=== PATIENT | female | born 1980 | race Caucasian/White ===

== ENCOUNTER 2016-12-31 08:00 | Inpatient (IN) | payer OTHER ==
[2016-12-31 09:08] VITALS: BMI 31.7
[2016-12-31 09:37] LABS: BASOPHIL 0.3 % (0-2.0); EOSINOPHIL 0.6 % (0-4.5); MCH 30.5 pg (25.7-33.7); MEAN CELL VOLUME 89.6 fl (80-96); MEAN PLT VOLUME 7.6 fl (7.5-11.1); NEUTROPHILS 73.1 % (42.8-82.8); PLATELET COUNT 233 K/MM3 (134-434); WHITE BLOOD COUNT 8.9 K/mm3 (4.0-10.0)
[2016-12-31 09:52] LABS: ANION GAP 8 (8-16); CALCIUM 8.8 mg/dL (8.5-10.1); CO2 24 mmol/L (21-32); GLUCOSE,RANDOM 68 mg/dL (74-106)
[2016-12-31 09:55] LABS: CREATININE 0.8 mg/dL (0.55-1.02); URIC ACID 4.7 mg/dL (2.6-7.2)
[2016-12-31 10:38] LABS: HIV 1 & 2 AB NEGATIVE; HIV 1 AGp24 NEGATIVE
--- NOTE | 2016-12-31 10:40 | HP ---
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: Alzheimer's, CVA, Dementia, Migraine, Multiple Sclerosis, Peripheral Neuropathy, Parkinson's, Seizure, Syncope, TIA, Vertigo, Other Cardiovascular: No: AFIB, Aneurysm, Aortic Insufficiency, Aortic Stenosis, CAD, CHF, Deep Vein Thrombosis, HTN, Hyperlipdemia, [place], Mitral Insufficiency, Mitral Stenosis, Murmur, Pulmonary Hypertension, Other Pulmonary: No: Asthma, Bronchitis, Cancer, COPD, O2 Dependent, Pneumonia, Previously Intubated, Pulmonary Embolus, Pulmonary Fibrosis, Sleep Apnea, Other Gastrointestinal: No: Ascites, Cancer, Constipation, Crohn's Disease, Diverticulitis, Diverticulosis, Esophageal Varices, Gastritis, GERD, GI Bleed, Hemorrhoids, Hiatal Hernia, Inflamatory Bowel Disease, Irritable Bowel Disease, Pancreatitis, Peptic Ulcer Disease, Ulcerative Colitis, Other Hepatobiliary: No: Cirrhosis, Cholelithiasis, Cholecystitis, Choledocholithiasis , Hepatitis A, Hepatitis B, Hepatitis C, Other Renal/: No: Renal Failure, Renal Inusuff, BPH, Cancer, Hematuria, Hemodialysis , Neurogenic Bladder, Renal Calculi, UTI, Other ...LMP: 08/12/12 ...: 4 ...Para: 2 Heme/Onc: No: Anemia, B12 Deficiency, Bleeding Disorder, Cancer, Current Chemotherapy, Current Radiation Therapy, Hemochromatosis, Hypercoaguable State, Myeloproliferative Synd, Sickle Cell Disease, Sickle Cell Trait, Thrombocytopenia, Other Infectious Disease: No: AIDS, C-Diff, Herpes Zoster, HIV, MRSA, STD's, Tuberculosis, VREF, Other Psych: No: Addictions, Anxiety, Bipolar, Depression, Panic, Psychosis, Schizophrenia, Other Musculoskeletal: No: Bursitis, Chronic low back pain, Hemiparesis, Hemiplegia, Osteoarthritis, Paraplegia, Other Rheumatology: No: Fibromyalgia, Gout, Lupus, Rheumatoid Arthritis, Sarcoidosis, Vasculitis, Other ENT: No: Allergic Rhinitis, Sinusitis, Other - Smoking History Smoking history: Never smoked Have you smoked in the past 12 months: No - Alcohol/Substance Use Hx Alcohol Use: No Home Medications - Allergies Allergies/Adverse Reactions: Allergies Allergy/AdvReac Type Severity Reaction Status Date / Time No Known Allergies Allergy Verified 08/30/12 13:59 - Home Medications Home Medications: Ambulatory Orders No Home Medications 0 dose .ROUTE UTDICT 08/30/12 Psyllium [Metamucil (Sugar-Free)] 5.85 gm PO BID #0 packet 08/31/12 Vit/Iron Fumarate/FA [ Tablet] 1 tab PO DAILY 12/31/16 Review of Systems - Review of Systems Constitutional: reports: No Symptoms Eyes: reports: No Symptoms HENT: reports: No Symptoms Neck: reports: No Symptoms Cardiovascular: reports: No Symptoms Respiratory: reports: No Symptoms Gastrointestinal: reports: No Symptoms Genitourinary: reports: No Symptoms Musculoskeletal: reports: No Symptoms Integumentary: reports: No Symptoms Neurological: reports: No Symptoms Endocrine: reports: No Symptoms Hematology/Lymphatic: reports: No Symptoms Psychiatric: reports: No Symptoms Physical Examination Vital Signs: Vital Signs Temperature 98.1 F 12/31/16 08:58 Pulse Rate 85 12/31/16 08:58 Respiratory Rate 18 12/31/16 08:58 Blood Pressure 145/85 12/31/16 08:58 O2 Sat by Pulse Oximetry (%) Constitutional: Yes: Well Nourished Eyes: Yes: WNL HENT: Yes: WNL Neck: Yes: WNL Cardiovascular: Yes: WNL Respiratory: Yes: WNL Gastrointestinal: Yes: WNL ...Rectal Exam: Yes: WNL Renal/: Yes: WNL Breast(s): Yes: WNL Musculoskeletal: Yes: WNL Extremities: Yes: WNL Integumentary: Yes: WNL Neurological: Yes: WNL ...Motor Strength: WNL Psychiatric: Yes: WNL Labs: CBC, BMP 12/31/16 09:15 12/31/16 09:15 Assessment/Plan as above admit labs pitocin
[2016-12-31] MEDS ORDERED: OXYTOCIN 15 UNITS/ LR 250 ML 250 ML IVPB SCH (10:45)
[2016-12-31] MEDS ORDERED: ELECTROLYTE-148 SOLN 1,000 ML IV SCH (10:45)
[2016-12-31 10:48] LABS: INR 0.86 (0.82-1.09); PROTHROMBIN TIME (PATIENT) 9.4 SEC (9.98-11.88)
--- NOTE | 2016-12-31 11:49 | PN ---
Ante-Partal Exam - Subjective Vital Signs: Vital Signs Temperature 98.2 F 12/31/16 10:00 Pulse Rate 68 12/31/16 11:00 Respiratory Rate 20 12/31/16 11:00 Blood Pressure 128/82 12/31/16 11:00 O2 Sat by Pulse Oximetry (%) Bleeding: No Headache: No Visual changes: No Right upper quadrant pain: No - Contractions Contractions: Yes Regularity: Regular Intensity: Mild Monitor Mode: External - Exam during Labor Heart Rate: 150 Variability: Minimal Category: I Monitor Accelerations: Present Monitor Decelerations: None Exam: Vaginal Dilatation (cm): 5 Effacement (%): 100 Amniotic Membrane Status: Ruptured Nitrazine Test: Positive Amniotic Fluid: Clear Presentation: Vertex Station: 0 - Assessment/Plan Assessment/Plan: as above continue pitocin pain control prn
[2016-12-31] MEDS ORDERED: AMPICILLIN - 1 GM in SODIUM CHLORIDE 100 ML IVPB SCH (14:30)
[2016-12-31] MEDS ORDERED: METHYLERGONOVINE MALEATE 0.2 MG/1 ML AMP IM PRN (15:21)
[2016-12-31] MEDS ORDERED: ACETAMINOPHEN 325 MG TABLET (FP) PO PRN (15:21)
[2016-12-31] MEDS ORDERED: BENZOCAINE 28 GM HEMORRHOIDAL OINTMENT TP PRN (15:21)
[2016-12-31] MEDS ORDERED: BISACODYL 10 MG SUPP.RECT RC PRN (15:21)
[2016-12-31] MEDS ORDERED: IBUPROFEN 600 MG TABLET (FP) PO PRN (15:21)
[2016-12-31] MEDS ORDERED: WITCH HAZEL 50% (TUCKS) 40 PAD/JAR PAD TP PRN (15:21)
[2016-12-31] MEDS ORDERED: BENZOCAINE 20% 57 GM BOTTLE TP PRN (15:21)
--- NOTE | 2016-12-31 15:24 | PN ---
Delivery - Delivery Vaginal Delivery: No Problems Type of Anesthesia: None Episiotomy/Laceration: None EBL (cc): 300 Delivery, Single - Feeding Plan Initial Plan: Elected not to breastfeed exclusively throughout hospitalization
[2016-12-31] MEDS ORDERED: OXYTOCIN 20 UNITS in 0.9% NS 1,000 ML IV SCH (15:30)
--- NOTE | 2017-01-01 01:05 | PN ---
Post Progress Note Post Day: 1 Type of Delivery: Vital Signs: Vital Signs Temperature 98.9 F 12/31/16 17:40 Pulse Rate 69 12/31/16 17:40 Respiratory Rate 20 12/31/16 17:40 Blood Pressure 141/85 12/31/16 17:40 O2 Sat by Pulse Oximetry (%) Breast Exam: Yes: Soft Uterus: Yes: Fundus Firm Abdomen/GI: Yes: Abdomen soft Lochia: Yes: Rubra Lochia, amount: Small Extremities: Yes: Calves non-tender Perineum: Yes: Intact - Labs Labs: CBC WBC 8.9 K/mm3 (4.0-10.0) 12/31/16 09:15 RBC 4.39 M/mm3 (3.60-5.2) 12/31/16 09:15 Hgb 13.4 GM/dL (10.7-15.3) 12/31/16 09:15 Hct 39.3 % (32.4-45.2) 12/31/16 09:15 MCV 89.6 fl (80-96) 12/31/16 09:15 MCH 30.5 pg (25.7-33.7) 12/31/16 09:15 MCHC 34.0 g/dl (32.0-36.0) 12/31/16 09:15 RDW 14.0 % (11.6-15.6) 12/31/16 09:15 Plt Count 233 K/MM3 (134-434) 12/31/16 09:15 MPV 7.6 fl (7.5-11.1) 12/31/16 09:15 Neutrophils % 73.1 % (42.8-82.8) 12/31/16 09:15 Lymphocytes % 19.1 % (8-40) 12/31/16 09:15 Monocytes % 6.9 % (3.8-10.2) 12/31/16 09:15 Eosinophils % 0.6 % (0-4.5) 12/31/16 09:15 Basophils % 0.3 % (0-2.0) 12/31/16 09:15 Retic Count 2.65 % (0.5-1.5) H 12/31/16 09:15 Assessment/Plan as above reg diet oob pain control
[2017-01-01 08:54] LABS: BASOPHIL 0.5 % (0-2.0); EOSINOPHIL 0.6 % (0-4.5); MCH 30.7 pg (25.7-33.7); MCHC 34.1 g/dl (32.0-36.0); MEAN CELL VOLUME 89.9 fl (80-96); MEAN PLT VOLUME 7.8 fl (7.5-11.1); NEUTROPHILS 78.1 % (42.8-82.8); PLATELET COUNT 229 K/MM3 (134-434); RDW 14.1 % (11.6-15.6); WHITE BLOOD COUNT 14.3 K/mm3 (4.0-10.0)
[2017-01-01] MEDS ORDERED: SENNOSIDES/DOCUSATE COMBO (SENNA PLUS) TABLET (UD) PO PRN (22:00)
--- NOTE | 2017-01-02 06:58 | PN ---
Post Progress Note Post Day: 2 Type of Delivery: Vital Signs: Vital Signs Temperature 98.0 F 01/02/17 05:52 Pulse Rate 64 01/02/17 05:52 Respiratory Rate 20 01/02/17 05:52 Blood Pressure 131/78 01/02/17 05:52 O2 Sat by Pulse Oximetry (%) Breast Exam: Yes: Soft Uterus: Yes: Fundus Firm Abdomen/GI: Yes: Abdomen soft Lochia: Yes: Rubra Lochia, amount: Small Perineum: Yes: Intact Activity: Ambulating - Labs Labs: CBC WBC 14.3 K/mm3 (4.0-10.0) H D 01/01/17 08:00 RBC 3.75 M/mm3 (3.60-5.2) 01/01/17 08:00 Hgb 11.5 GM/dL (10.7-15.3) D 01/01/17 08:00 Hct 33.7 % (32.4-45.2) 01/01/17 08:00 MCV 89.9 fl (80-96) 01/01/17 08:00 MCH 30.7 pg (25.7-33.7) 01/01/17 08:00 MCHC 34.1 g/dl (32.0-36.0) 01/01/17 08:00 RDW 14.1 % (11.6-15.6) 01/01/17 08:00 Plt Count 229 K/MM3 (134-434) 01/01/17 08:00 MPV 7.8 fl (7.5-11.1) 01/01/17 08:00 Neutrophils % 78.1 % (42.8-82.8) 01/01/17 08:00 Lymphocytes % 15.4 % (8-40) 01/01/17 08:00 Monocytes % 5.4 % (3.8-10.2) 01/01/17 08:00 Eosinophils % 0.6 % (0-4.5) 01/01/17 08:00 Basophils % 0.5 % (0-2.0) 01/01/17 08:00 Retic Count 2.65 % (0.5-1.5) H 12/31/16 09:15 Haptoglobin 132 mg/dL (34-200) 12/31/16 09:15 Assessment/Plan as above doing well continue care dc home today
[2017-01-02 08:00] VITALS: BP 131/90; PULSE 63; TEMP 98.2
== END 2017-01-02 12:05 | disposition home or self-care (01) | DRG 560 ==
LOC: JLDR 08:00 → J3W 16:17
PROVIDERS: ADMIT Obstetrics & Gynecology; ATTEND Obstetrics & Gynecology
PROC: 10E0XZZ Delivery of Products of Conception, External Approach (ICD-10-PCS; principal; 2016-12-31)
DX: O80 Encounter for full-term uncomplicated delivery (principal); Z3A.39 39 weeks gestation of pregnancy; Z37.0 Single live birth
CPT/HCPCS: 36415; 59409; 80048; 82977; 83010; 84450; 84460; 84550; 85025; 85044; 85610; 85730; 86593; 86850; 86900; 86901; 87389

== ENCOUNTER 2017-02-23 05:07 | Day surgery (SDC) | payer OTHER ==
[2017-02-20 15:55] VITALS: BMI 27.3
[2017-02-23] MEDS ORDERED: PROPOFOL 20 ML ONE (14:44)
[2017-02-23] MEDS ORDERED: SUCCINYLCHOLINE CHLORIDE 200 MG/10 ML VIAL ONE (14:44)
[2017-02-23] MEDS ORDERED: MIDAZOLAM HCL 2 MG/2 ML SINGLE DOSE VIAL ONE (15:23)
--- NOTE | 2017-02-23 15:43 | HP ---
Past Medical History - Primary Care Physician PCP:: Jeremy Velasco - Admission Chief Complaint: sterlization History of Present Illness: 37yo f , requesting laparoscopic BTL, risks and ulcerative has discussed with patient History Source: Patient Limitations to Obtaining History: No Limitations - Past Medical History ...: 3 ...Para: 3 - Past Surgical History Hx Myomectomy: No Hx Transabdominal Cerclage: No - Smoking History Smoking history: Never smoked Have you smoked in the past 12 months: No - Alcohol/Substance Use Hx Alcohol Use: No - Social History History of Recent Travel: No Home Medications - Allergies Allergies/Adverse Reactions: Allergies Allergy/AdvReac Type Severity Reaction Status Date / Time No Known Allergies Allergy Verified 02/23/17 15:05 - Home Medications Home Medications: Ambulatory Orders NK [No Known Home Medication] 02/20/17 Review of Systems - Review of Systems Constitutional: reports: No Symptoms Eyes: reports: No Symptoms HENT: reports: No Symptoms Neck: reports: No Symptoms Respiratory: reports: No Symptoms Gastrointestinal: reports: No Symptoms Genitourinary: reports: No Symptoms Breasts: reports: No Symptoms Reported Musculoskeletal: reports: No Symptoms Integumentary: reports: No Symptoms Endocrine: reports: No Symptoms Hematology/Lymphatic: reports: No Symptoms Psychiatric: reports: No Symptoms Physical Exam-[employer] Vital Signs: Vital Signs Temperature 98.4 F 02/23/17 15:04 Pulse Rate 77 02/23/17 15:04 Respiratory Rate 20 02/23/17 15:04 Blood Pressure 110/78 02/23/17 15:04 O2 Sat by Pulse Oximetry (%) 99 02/23/17 14:59 Constitutional: Yes: Well Nourished, No Distress, Calm Eyes: Yes: WNL, Conjunctiva Clear, EOM Intact HENT: Yes: WNL, Atraumatic, Normocephalic Neck: Yes: WNL, Supple, Trachea Midline Cardiovascular: Yes: WNL, Regular Rate and Rhythm Respiratory: Yes: WNL, Regular, CTA Bilaterally Gastrointestinal: Yes: WNL ...Rectal Exam: Yes: WNL Renal/: Yes: WNL Internal Exam Deferred: No Vaginal Exam: Yes: Normal Cervix: Yes: Normal Uterus: Yes: Normal Adnexa: Not Palpable: Left, Right Breast(s): Yes: WNL Musculoskeletal: Yes: WNL Extremities: Yes: WNL Edema: No Integumentary: Yes: WNL Neurological: Yes: WNL, Alert, Oriented ...Motor Strength: WNL Psychiatric: Yes: WNL, Alert, Oriented Problem List - Problem (1) Sterilization Code(s): Z30.2 - ENCOUNTER FOR STERILIZATION Assessment/Plan laparoscopic bilateral tubal fulguration
[2017-02-23] MEDS ORDERED: IBUPROFEN 800 MG/8 ML IJ IVPB PRN (16:29)
[2017-02-23] MEDS ORDERED: IBUPROFEN 600 MG TABLET (FP) PO PRN (16:29)
[2017-02-23] MEDS ORDERED: oxyCODONE HCL 5 MG TABLET PO PRN ×2 (16:29→16:35)
[2017-02-23] MEDS ORDERED: ONDANSETRON 4 MG/2 ML VIAL IVPB PRN (16:29)
[2017-02-23] MEDS ORDERED: ELECTROLYTE-148 SOLN 1,000 ML IV SCH (16:30)
[2017-02-23] MEDS ORDERED: ONDANSETRON 4 MG/2 ML VIAL IVPUSH PRN (16:35)
[2017-02-23] MEDS ORDERED: PROMETHAZINE HCL 25 MG/1 ML VIAL IVPUSH PRN (16:35)
--- NOTE | 2017-02-23 17:05 | OP ---
DATE OF OPERATION: 02/23/2017 PREOPERATIVE DIAGNOSIS: Voluntary sterilization. POSTOPERATIVE DIAGNOSIS: Voluntary sterilization. PROCEDURE: Laparoscopic bilateral tubal cauterization. SURGEON: Jeremy Velasco MD ANESTHESIA: General. ANESTHESIOLOGIST: Steve Bell MD ESTIMATED BLOOD LOSS: 15-20 mL DESCRIPTION OF OPERATIVE PROCEDURE: patient was taken to the operating room. Under adequate general anesthesia, examination under anesthesia revealed the external genitalia to be normal. Vagina was normal. Cervix clean; no lesion. Uterus normal size. Adnexa: No masses palpable. Then, with a weighted speculum in the vagina, anterior lip of the cervix was grasped with a single-tooth tenaculum, and the uterine cavity was sounded to 9 cm. Then, Hulka was introduced into the uterine cavity. A Sanchez was inserted, and the patient was prepped and draped for a pelviscopy. A small infraumbilical skin incision was made. The Veress needle was introduced. Pneumoperitoneum established. A 5-mm trocar introduced through the umbilical area, and then, scope was introduced. Under direct vision, a 5-mm trocar was introduced through the suprapubic area, and bipolar cautery was introduced. Right tube was grasped with the bipolar cautery, cauterized in 3 portions 2 cm apart. The same procedure for the opposite tube. Uterus was normal size with a small, 3-cm anterior myoma. Both tubes and ovaries were normal. No cul-de-sac adhesion. No bleeding was seen. Upper abdomen was normal. Abdomen was emptied of all the gases, instruments withdrawn, and suprapubic and infraumbilical skin incisions were closed with interrupted sutures of 4-0 Biosyn. Patient tolerated the procedure well, left the OR in good condition. Tomas [id number]
[2017-02-23 18:01] VITALS: TEMP 97.5
[2017-02-23 19:35] VITALS: BP 130/80; PULSE 66
== END 2017-02-23 19:45 | disposition home or self-care (01) ==
LOC: JASU-SURG 05:07
PROVIDERS: ATTEND Obstetrics & Gynecology
PROC: 0U574ZZ Destruction of Bilateral Fallopian Tubes, Percutaneous Endoscopic Approach (ICD-10-PCS; principal; 2017-02-23 16:00)
DX: Z30.2 Encounter for sterilization (principal)
CPT/HCPCS: 84703; 94760

== ENCOUNTER 2017-07-10 08:56 | Emergency (ER) | payer OTHER ==
[2017-07-10 09:15] VITALS: BP 135/88; PULSE 78; TEMP 98.6; BMI 26.6
--- NOTE | 2017-07-10 10:54 | PDOC ---
History of Present Illness <Paul Keith - Last Filed: 07/10/17 10:59> - General History Source: Patient Exam Limitations: No Limitations - History of Present Illness Initial Comments: 07/10/17 13:51 The patient is an otherwise healthy 37-year-old female with no significant past medical history, and presents to the emergency department for evaluation of a left breast lump. Patient states she noticed the lump yesterday night after feeling pain in her left breast. She reports the mass is located at the lateral aspect of the breast. She states she gave 6 months ago but denies . The patient denies chest pain, shortness of breath, headache and dizziness. The patient denies fever, chills, nausea, vomit,. Allergies: NKDA Past Surgical History: None reported Social History: No toxic habits reported PCP: Dr. Chikis Ordonez [facility] Hx: sister had colon cancer at age 25 <Christa Ramirez - Last Filed: 07/10/17 13:52> - General Chief Complaint: Pain Stated Complaint: LUMP ON BREAST Time Seen by Provider: 07/10/17 10:32 Past History - Past Medical History Anemia: No Asthma: No Cancer: No Cardiac Disorders: No CVA: No COPD: No CHF: No Dementia: No Diabetes: No GI Disorders: No Disorders: No HTN: No Hypercholesterolemia: No Liver Disease: No Seizures: No Thyroid Disease: No - Surgical History Abdominal Surgery: No Appendectomy: No Cardiac Surgery: No Cholecystectomy: No Lung Surgery: No Neurologic Surgery: No Orthopedic Surgery: No - Suicide/Smoking/Psychosocial Hx Smoking History: Never smoked Have you smoked in the past 12 months: No Information on smoking cessation initiated: No Hx Alcohol Use: No Drug/Substance Use Hx: No Substance Use Type: None Hx Substance Use Treatment: No <Paul Keith - Last Filed: 07/10/17 10:59> <Christa Ramirez - Last Filed: 07/10/17 13:52> - Past Medical History Allergies/Adverse Reactions: Allergies Allergy/AdvReac Type Severity Reaction Status Date / Time No Known Allergies Allergy Verified 07/10/17 09:09 Home Medications: Ambulatory Orders Ibuprofen [Motrin -] 600 mg PO QID #28 tablet 02/23/17 Review of Systems - Review of Systems Able to Perform ROS?: Yes Comments:: 07/10/17 13:51 CONSTITUTIONAL: No reported: Fever, Chills, Diaphoresis, Generalized Weakness, Malaise, Loss of Appetite RESPIRATORY: No reported: Cough, Shortness of Breath, GASTROINTESTINAL: No reported: Nausea, Vomiting, BREAST: (+) Left breast lump <Christa Ramirez - Last Filed: 07/10/17 13:52> *Physical Exam - Vital Signs Last Vital Signs Temp Pulse Resp BP Pulse Ox 98.6 F 78 18 135/88 100 07/10/17 09:09 07/10/17 09:09 07/10/17 09:09 07/10/17 09:09 07/10/17 09:09 <Paul Keith - Last Filed: 07/10/17 10:59> - Vital Signs Last Vital Signs Temp Pulse Resp BP Pulse Ox 98.6 F 78 18 135/88 100 07/10/17 09:09 07/10/17 09:09 07/10/17 09:09 07/10/17 09:09 07/10/17 09:09 - Physical Exam Comments: 07/10/17 13:52 GENERAL: The patient is awake, alert, and fully oriented, Nontoxic - in no acute distress BREAST EXAM: (+) 2x3 cm mildly tender mass in LLQ of the left breast. No erythema, no induration, no fluctuance, no dimpling. <Christa Ramirez - Last Filed: 07/10/17 13:52> Medical Decision Making - Medical Decision Making 07/10/17 10:59 37y F presents with L sided breast mass. Pt had alittle pain there last night so she felt the area and noted a mass. Pt denies any fever/chills, not currently breast feeding. on exam pt has a mildly tender mass on the LLQ of the L breast ddx:cyst, consider abcess but not clinically consistent, breast ca will hav ept fu wit PMD for further imaging Return precautions were discussed A portion of this note was documented by scribe services under my direction. I have reviewed the details of the note, within reason, and agree with the documentation with the following case summary and management plan written by me <Paul Keith - Last Filed: 07/10/17 10:59> *DC/Admit/Observation/Transfer - Discharge Dispostion Admit: No <Paul Keith - Last Filed: 07/10/17 10:59> - Attestations Scribe Attestion: 07/10/17 13:52 Documentation prepared by Christa Ramirez, acting as medical concierge for Paul Keith MD, /DO. <Christa Ramirez - Last Filed: 07/10/17 13:52> Diagnosis at time of Disposition: Breast mass in female - Discharge Dispostion Disposition: HOME Condition at time of disposition: Stable - Referrals Referrals: Chikis Ordonez MD [Primary Care Provider] - [facility] [place] [Provider Group] - Patient Instructions Printed Discharge Instructions: DI for Breast Mass -- Uncertain Cause Additional Instructions: Please follow up with your primary care doctor for further imaging. - Post Discharge Activity
== END 2017-07-10 11:11 | disposition home or self-care (01) ==
LOC: JER 08:56 → JERFT 08:56 → JER 11:11
DX: N63.23 Unspecified lump in the left breast, lower outer quadrant (principal)
CPT/HCPCS: 99281-25